=== PATIENT | male | born 1990 | race African-American/Black ===

== ENCOUNTER 2019-09-03 08:19 | Emergency (ER) | payer SELFPAY ==
[~2019-09-03] VITALS: Ht 177.8 cm; Wt 132.0 kg
[2019-09-03 08:27] VITALS: BP 156/97
[2019-09-03 09:35] LABS: CLARITY URINE CLEAR (CLEAR); COLOR URINE YELLOW (YELLOW); KETONES URINE NEGATIVE (NEGATIVE); LEUKOCYTE ESTERASE URINE 1+ (NEGATIVE); NITRITE URINE NEGATIVE (NEGATIVE); OCCULT BLOOD URINE TRACE (NEGATIVE); PROTEIN URINE NEGATIVE (NEGATIVE); SPECIFIC GRAVITY URINE 1.011 (1.005-1.030); UROBILINOGEN URINE 0.2 E.U./dL (0.2-1.0)
[2019-09-03] MEDS ORDERED: AZITHROMYCIN 500 MG TABLET PO ONE (10:00)
[2019-09-03] MEDS ORDERED: LIDOCAINE HCL 1% 20ML VIAL (Pyxis) INJ INFIL ONE (10:00)
[2019-09-03] MEDS ORDERED: CEFTRIAXONE SODIUM 250 MG/VIAL IM ONE (10:00)
== END 2019-09-03 10:35 | disposition home or self-care (01) ==
LOC: ER 08:39
DX: A59.03 Trichomonal cystitis and urethritis (principal); R30.0 Dysuria
CPT/HCPCS: 81003; 96372; 99283; J0696; J3490

== ENCOUNTER 2021-01-17 12:38 | Emergency (ER) | payer MEDICAID ==
[~2021-01-17] VITALS: Ht 177.8 cm; Wt 143.0 kg
[2021-01-17 13:10] VITALS: BP 156/96
[2021-01-17 15:36] LABS: CLARITY URINE CLEAR (CLEAR); COLOR URINE YELLOW (YELLOW); KETONES URINE NEGATIVE (NEGATIVE); LEUKOCYTE ESTERASE URINE NEGATIVE (NEGATIVE); NITRITE URINE NEGATIVE (NEGATIVE); OCCULT BLOOD URINE NEGATIVE (NEGATIVE); PROTEIN URINE NEGATIVE (NEGATIVE); SPECIFIC GRAVITY URINE 1.015 (1.005-1.030); UROBILINOGEN URINE 0.2 E.U./dL (0.2-1.0)
[2021-01-20 04:09] LABS: NEISSERIA GONORRHOEAE NAA Negative (Negative)
== END 2021-01-17 15:55 | disposition home or self-care (01) ==
LOC: ER 12:58
DX: Z20.2 Contact with and (suspected) exposure to infections with a predominantly sexual mode of transmission (principal); Z20.6 Contact with and (suspected) exposure to human immunodeficiency virus [HIV]
CPT/HCPCS: 81003; 86592; 87491; 87591; 99283